=== PATIENT | male | born 1985 | race Caucasian/White ===

== ENCOUNTER 2022-08-25 12:38 | Emergency (ER) | payer MEDICAID ==
[~2022-08-25] VITALS: Ht 175.3 cm; Wt 90.7 kg
[2022-08-25 12:52] VITALS: BP_SYST 142
--- NOTE | 2022-08-25 12:55 | NUR ---
Patient triaged and placed in waiting room. VSS and patient appears in no acute distress at this time. Accompanied by SELF, awaiting available bed, and MD notified of need for MSE.
--- NOTE | 2022-08-25 13:23 | NUR ---
Placed in room 6 . Placed on magazine hand, blood pressure machine and pulse oximeter. To gown for exam. Side rails up. Report given to DMITRI TERESA.
--- NOTE | 2022-08-25 13:24 | NUR ---
PT STATES HE IS CONCERNED HE HAS BEEN EXPOSED TO SYPHILLIS MORE THAN 1 YEAR AGO. PT STATES HE HAS HX OF SYPH DIAGNOSIS THAT WAS TREATED. HE HAS SINCE STARTED FEELING SOME OF THE SAME SYMPTOMS HE FELT AT THAT TIME. SX INCLUDE MUCOUS IN BOTH EYES, BLOODY STOOL YESTERDAY X 1 , STINGING SENSATION WITH URINATION. PT DENIES N/V/F/D. PATIENT IS CURRENTLY A RESIDENT OF [facility]. PATIENT IS A&OX4, CALM AND COOPERATIVE. CARE TO BE PROVIDED ORDERED.
--- NOTE | 2022-08-25 13:26 | NUR ---
ER Dr. KATHLEEN at bedside examining patient.
[2022-08-25 13:50] LABS: BASOPHILS % (AUTO) 0.5 % (0.0-2.0); EOSINOPHILS # (AUTO) 0.1 K/uL (0.0-0.4); EOSINOPHILS % (AUTO) 1.3 % (0.0-4.0); HEMATOCRIT 41.2 % (36-54); HEMOGLOBIN 14.4 g/dL (14.0-18.0); LYMPHOCYTES # (AUTO) 2.3 K/uL (1.0-5.5); MEAN CORPUSCULAR HEMOGLOBIN 31 pg (27-31); MEAN CORPUSCULAR HGB CONC 35 % (32-36); MEAN CORPUSCULAR VOLUME 88 fL (79.0-98.0); MONOCYTES # (AUTO) 0.5 K/uL (0.0-1.0); MONOCYTES % (AUTO) 7.4 % (1.7-9.3); NEUTROPHILS # (AUTO) 3.7 K/uL (1.8-7.7); NEUTROPHILS % (AUTO) 55.8 % (40.0-70.0); PLATELET COUNT (AUTO) 300 K/uL (130-430); RED BLOOD CELL COUNT(AUTO) 4.71 MIL/uL (4.2-6.2); RED CELL DISTRIBUTION WIDTH 13.1 % (9.0-15.0); WHITE BLOOD COUNT (AUTO) 6.6 K/uL (4.8-10.8)
[2022-08-25 14:05] LABS: BILIRUBIN,URINE NEGATIVE (NEGATIVE); BLOOD, URINE 1+ (NEGATIVE); COLOR,URINE YELLOW (YELLOW); GLUCOSE,URINE NEGATIVE (NEGATIVE); KETONES,URINE NEGATIVE (NEGATIVE); LEUKOCYTE ESTERASE ,URINE NEGATIVE (NEGATIVE); NITRITE, URINE NEGATIVE (NEGATIVE); PROTEIN URINE NEGATIVE (NEGATIVE); UROBILINOGEN,URINE 0.2 (0.2-1.0)
[2022-08-25 14:10] LABS: CLARITY/URINE SLIGHTLY HAZY (CLEAR)
[2022-08-25 14:11] LABS: CREATININE 1.2 mg/dL (0.55-1.30)
[2022-08-25 14:15] LABS: ALBUMIN 3.7 g/dL (3.4-4.8); TOTAL BILIRUBIN 0.2 mg/dL (0.0-1.0)
[2022-08-25 15:22] LABS: BACTERIA,URINE FEW /HPF (None Seen); WBC,URINE 0-3 /HPF (0-3)
--- NOTE | 2022-08-25 16:25 | NUR ---
Patient given written and verbal discharge instructions and verbalizes understanding. ER DR. GABI IFSHER discussed with patient the results and treatment provided. Patient in stable condition. ID arm band removed. Patient educated on pain management and to follow up with PMD. Pain Scale 0/10. Opportunity for questions provided and answered. Medication side effect fact sheet provided.
== END 2022-08-25 16:16 | disposition home or self-care (01) ==
LOC: SED 12:38
DX: K62.5 Hemorrhage of anus and rectum (principal); Z79.899 Other long term (current) drug therapy
CPT/HCPCS: 36415; 80053; 81000; 85025; 86592; 87491; 99283